=== PATIENT | female | born 1990 | race Caucasian/White ===

== ENCOUNTER 2019-05-12 14:44 | Emergency (ER) | payer OTHER ==
[2019-05-12 14:54] VITALS: TEMP 98.2
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
[2019-05-12 15:20] VITALS: BP 130/70; PULSE 80; RESP 16
== END 2019-05-12 15:17 | disposition home or self-care (01) ==
LOC: EC 14:44
DX: F41.9 Anxiety disorder, unspecified (principal); F17.200 Nicotine dependence, unspecified, uncomplicated
CPT/HCPCS: 99284

== ENCOUNTER 2019-05-21 22:08 | Observation (INO) | payer OTHER ==
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
[2019-05-21] MEDS ORDERED: ZIPRASIDONE 20 MG VIAL IM STA (22:50)
[2019-05-21] MEDS ORDERED: LORazepam 2 MG/ML INJ IM STA (22:50)
[2019-05-21 23:27] LABS: Amphetamine Screen,Urine Not Detected (NotDetected); Barbiturate Screen,Urine Not Detected (NotDetected); Benzodiazepines Screen,Urine Not Detected (NotDetected); Cocaine Screen,Urine Not Detected (NotDetected); Methadone Screen, Urine Not Detected (NotDetected); Opiate Screen,Urine Not Detected (NotDetected); Oxycodone Screen, Urine Not Detected (NotDetected); Phencyclidine Screen,Urine Not Detected (NotDetected); Tricyclic Antidepressant,Urine Not Detected (NotDetected); Urn Cannabinoid Scrn Not Detected (NotDetected)
[2019-05-21] MEDS ORDERED: ONDANSETRON 4 MG/2 ML VIAL IVP PRN (23:57)
[2019-05-21] MEDS ORDERED: LORazepam 2 MG/ML INJ IV PRN (23:57)
[2019-05-21] MEDS ORDERED: THIAMINE 100 MG/ML 2 ML VIAL IM STA (23:57)
[2019-05-21] MEDS ORDERED: SODIUM CHLORIDE 0.9% 1,000 ML with MVI, ADULT NO.4 WITH VIT K 10 ML, THIAMINE 100 MG, F... IV ONE ×4 (23:57)
[2019-05-21] MEDS ORDERED: NALOXONE 0.4 MG/ML 1 ML VIAL IV PRN (23:57)
[2019-05-22] MEDS: LORazepam 2 MG/ML INJ IV PRN ×6 (06:42→21:35)
[2019-05-22] MEDS: NICOTINE 14MG/24HR PATCH TRANSDERM SCH (08:05)
[2019-05-22] MEDS: SODIUM CHLORIDE 0.9% 1,000 ML IV SCH (14:12)
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
--- NOTE | 2019-05-22 16:22 | P.HPIM ---
History of Present Illness H&P Date: 05/22/19 Chief Complaint: Acute alcohol intoxication Patient is a 29-year-old female with a known history of asthma came to ER with complaints of anxiety and panic attack and also having suicidal ideation. Patient has been very depressed and panic that her father a day before . Patient was very panicky and felt like her asthma attack. Patient was also suicidal at the time. Denied any having plan. Otherwise patient denied any complaints of fever or chills. No recent illnesses. No sick contacts. Denied any complaints of shortness of breath now. No nausea vomiting or abdominal pain. No dysuria or hematuria. No headache or dizziness or lightheadedness. No recent travel. UDS is negative. Serum alcohol is 399 Patient is currently awake alert and oriented 3. Currently patient is more comfortable and denied any complaints of social ideation. Review of Systems Constitutional: Patient denies any fever or chills . No generalized weakness or weight loss. Abdomen: Patient denied nausea vomiting and diarrhea and abdominal pain. Cardiovascular: Patient denies any chest pain or short of breath no palpitations. Respiratory: patient denied any cough is from production. No shortness of breath Neurologic: Patient denied any numbness or tingling headache. Musculoskeletal: Patient denies any complaints of joint swelling or deformity. Skin: Negative Psychiatric: Negative Endocrine: No heat or cold intolerance. No recent weight gain. Genitourinary: No dysuria or hematuria. All other 14 point ROS negative except the above Past Medical History Past Medical History: Asthma History of Any Multi-Drug Resistant Organisms: None Reported Past Surgical History: Section Past Psychological History: No Psychological Hx Reported Smoking Status: Current some day smoker Past Alcohol Use History: Abuse, Heavy Past Drug Use History: None Reported - Past Family History Father Family Medical History: Cancer Additional Family Medical History / Comment(s): Father recently from cancer-[t does not know type. Mother Family Medical History: Cancer Additional Family Medical History / Comment(s): Mother has some form of cancer- pt does not know type and does not speak to mother much. Medications and Allergies Home Medications Medication Instructions Recorded Confirmed Type No Known Home Medications 05/22/19 05/22/19 History Allergies Allergy/AdvReac Type Severity Reaction Status Date / Time No Known Allergies Allergy Verified 05/22/19 08:18 Physical Exam Vitals: Vital Signs Temp Pulse Pulse Resp BP BP Pulse Ox 11/15/19 08:13 18 05/22/19 06:59 97.5 F L 74 16 112/59 99 05/22/19 06:06 97 05/22/19 05:00 97.4 F L 80 12 90/61 94 L 05/22/19 01:40 110/74 98 05/22/19 01:25 97.7 F 61 12 87/52 92 L 05/22/19 00:57 70 16 136/71 96 05/21/19 22:30 98.8 F 87 18 125/91 98 Intake and Output 05/21/19 05/22/19 05/22/19 22:59 06:59 14:59 Intake Total 500 Balance 500 Intake: Intake, IV Titration 500 Amount Sodium Chloride 0.9% 1, 500 000 ml @ 100 mls/hr IV . Q10H7M ONE with Mvi, Adult No.4 with Vit K 10 ml with Thiamine 100 mg with Folic Acid 1 mg Rx#: [id number] Other: Voiding Method Diaper Incontinent Weight 59.874 kg PHYSICAL EXAMINATION: Patient is lying in the bed comfortably, no acute distress, awake alert and oriented.. HEENT: Normocephalic. Neck is supple. Pupils reactive. Nostrils clear. Oral c avity is moist. Ears reveal no drainage. Neck reveals no JVD, carotid bruits, or thyromegaly. CHEST EXAMINATION: Trachea is central. Symmetrical expansion. Lung thurston clear to auscultation and percussion. CARDIAC: Normal S1, S2 with no gallops. No murmurs ABDOMEN: Soft. Bowel sounds normal. No organomegaly. No abdominal bruits. Extremities: reveal no edema. No clubbing or cyanosis Neurologically awake, alert, oriented x3 with well-coordinated movements. No focal deficits noted Skin: No rash or skin lesions. Psychiatric: Coperative. Nonsuicidal Musculoskeletal: No joint swelling or deformity. Normal range of motion. Results Labs: Abnormal Lab Results - Last 24 Hours (Table) 05/21/19 Range/Units 23:26 Serum Alcohol 399 H* mg/dL Thrombosis Risk Factor Assmnt - DVT/VTE Prophylaxis DVT/VTE Prophylaxis: Mechanical Prophylaxis ordered Assessment and Plan Assessment: Acute alcohol intoxication Acute suicidal ideation and panic episode. Currently nonsuicidal. Comfortable at this time. History of asthma. Not in exacerbation DVT prophylaxis with early ambulation. Plan: Patient will be continued on IV hydration. Thiamine and multivitamins. Breathing treatments as needed. Currently patient is awake alert and oriented 3. Denied any suicidal ideation. We will check CBC and CMP. If the lab workup was negative patient is medically cleared if inpatient psychiatric admission is needed. Continue to follow closely. Sitter at bedside currently. Time with Patient: Greater than 30
[2019-05-22 17:27] LABS: Basophils % (A) 1 %; Eosinophils # (A) 0.2 k/uL (0-0.7); Eosinophils % (A) 3 %; HCT 41.3 % (34.0-46.0); HGB 13.8 gm/dL (11.4-16.0); Lymphocytes # (A) 1.9 k/uL (1.0-4.8); Lymphocytes % (A) 29 %; MCH 30.1 pg (25.0-35.0); MCHC 33.5 g/dL (31.0-37.0); MCV 89.9 fL (80.0-100.0); Mean Platelet Volume 6.1; Monocytes # (A) 0.2 k/uL (0-1.0); Monocytes % (A) 3 %; Neutrophils # (A) 4.1 k/uL (1.3-7.7); Neutrophils % (A) 63 %; Platelet Count 219 k/uL (150-450); RDW 14.1 % (11.5-15.5); WBC 6.5 k/uL (3.8-10.6)
[2019-05-22 17:38] LABS: ALT 27 U/L (9-52); AST 57 U/L (14-36); African American GFR (CKD) >90 (>60 ml/min/1.73 sqM); Alkaline Phosphatase 138 U/L (38-126); Anion Gap 9 mmol/L; Blood Urea Nitrogen 13 mg/dL (7-17); Calcium 8.9 mg/dL (8.4-10.2); Carbon Dioxide 23 mmol/L (22-30); Chloride 106 mmol/L (98-107); Glucose 90 mg/dL (74-99); Non-African American GFR(CKD) >90 (>60 ml/min/1.73 sqM); Potassium 4.2 mmol/L (3.5-5.1); Sodium 138 mmol/L (137-145); Total Bilirubin 0.5 mg/dL (0.2-1.3); Total Protein 7.6 g/dL (6.3-8.2)
[2019-05-22] MEDS: THIAMINE 100 MG TAB PO SCH (17:56)
[2019-05-23] MEDS: LORazepam 2 MG/ML INJ IV PRN (00:19)
[2019-05-23] MEDS: SODIUM CHLORIDE 0.9% 1,000 ML IV SCH ×3 (05:34→20:27)
[2019-05-23] MEDS: THIAMINE 100 MG TAB PO SCH ×2 (07:53→17:41)
[2019-05-23] MEDS: NICOTINE 14MG/24HR PATCH TRANSDERM SCH (07:53)
[2019-05-23] MEDS: LORazepam 0.5 MG TAB PO PRN ×2 (07:53→16:08)
[2019-05-23] MEDS ORDERED: ACETAMINOPHEN TAB 325 MG TAB PO PRN (21:13)
[2019-05-23 21:54] VITALS: RESP 16
--- NOTE | 2019-05-23 23:46 | P.PN ---
Subjective Progress Note Date: 05/23/19 Principal diagnosis: Acute alcohol intoxication and withdrawal symptoms Suicidal ideation Patient is a 29-year-old female with a known history of asthma came to ER with complaints of anxiety and panic attack and also having suicidal ideation. Patient has been very depressed and panic that her father a day before birthday. Patient was very panicky and felt like her asthma attack. Patient was also suicidal at the time. Denied any having plan. Otherwise patient denied any complaints of fever or chills. No recent illnesses. No sick contacts. Denied any complaints of shortness of breath now. No nausea vomiting or abdominal pain. No dysuria or hematuria. No headache or dizziness or lightheadedness. No recent travel. UDS is negative. Serum alcohol is 399 Patient is currently awake alert and oriented 3. Currently patient is more comfortable and denied any complaints of social ideation. 05/23/2019 Patient is currently sitting in the bed comfortably. Patient had another panic episode today afternoon. Still anxious and is requiring Ativan. Patient will be started on Librium and continue to monitor for alcohol withdrawal symptoms. Psychiatric evaluation possible transfer to inpatient psychiatric unit. Patient denied any complaints of chest pain or shortness of breath. No nausea vomiting. Tolerating oral diet. No fever no chills. No headache or dizziness. Current medications reviewed. Objective - Vital Signs Vital signs: Vital Signs Temp 98.1 F 05/23/19 11:36 Pulse 57 L 05/23/19 11:36 Resp 17 05/23/19 11:36 BP 115/81 05/23/19 11:36 Pulse Ox 99 05/23/19 11:36 Intake & Output 05/22/19 05/23/19 05/23/19 18:59 06:59 18:59 Intake Total 453 966 5429 Balance 707 806 2580 Intake: Intake, IV Titration 800 900 800 Amount Sodium Chloride 0.9% 1, 800 900 800 000 ml @ 100 mls/hr IV . Q10H CHRISTI Rx#:[id number] Oral 1000 Other: Voiding Method Toilet Toilet Toilet # Voids 3 - Exam PHYSICAL EXAMINATION: Patient is lying in the bed comfortably, no acute distress, awake alert and oriented.. HEENT: Normocephalic. Neck is supple. Pupils reactive. Nostrils clear. Oral cavity is moist. Ears reveal no drainage. Neck reveals no JVD, carotid bruits, or thyromegaly. CHEST EXAMINATION: Trachea is central. Symmetrical expansion. Lung thurston clear to auscultation and percussion. CARDIAC: Normal S1, S2 with no gallops. No murmurs ABDOMEN: Soft. Bowel sounds normal. No organomegaly. No abdominal bruits. Extremities: reveal no edema. No clubbing or cyanosis Neurologically awake, alert, oriented x3 with well-coordinated movements. No focal deficits noted Skin: No rash or skin lesions. Psychiatric: Coperative. Nonsuicidal. Anxious Musculoskeletal: No joint swelling or deformity. Normal range of motion. - Labs CBC & Chem 7: 05/22/19 17:14 05/22/19 17:14 Assessment and Plan Assessment: Acute alcohol intoxication Acute alcohol withdrawal symptoms Acute suicidal ideation and panic episode. Currently nonsuicidal. History of asthma. Not in exacerbation DVT prophylaxis with early ambulation. Plan: Patient will be continued on IV hydration. Thiamine and multivitamins. Breathing treatments as needed. Currently patient is awake alert and oriented 3. Denied any suicidal ideation. She is medically stable.. Continue to follow closely. Time with Patient: Greater than 30
[2019-05-24] MEDS: LORazepam 0.5 MG TAB PO PRN ×3 (00:11→18:42)
[2019-05-24] MEDS: SODIUM CHLORIDE 0.9% 1,000 ML IV SCH ×3 (04:29→23:00)
[2019-05-24] MEDS: THIAMINE 100 MG TAB PO SCH ×2 (10:27→16:58)
[2019-05-24] MEDS: NICOTINE 14MG/24HR PATCH TRANSDERM SCH (10:27)
[2019-05-25] MEDS: LORazepam 0.5 MG TAB PO PRN ×2 (02:32→10:32)
[2019-05-25 04:49] VITALS: BP 95/63; PULSE 53; TEMP 98.1
[2019-05-25] MEDS: THIAMINE 100 MG TAB PO SCH (07:57)
[2019-05-25] MEDS: NICOTINE 14MG/24HR PATCH TRANSDERM SCH (07:57)
[2019-05-25] MEDS: SODIUM CHLORIDE 0.9% 1,000 ML IV SCH (10:29)
[2019-05-25 11:09] LABS: Basophils # (A) 0.1 k/uL (0-0.2); Basophils % (A) 1 %; Eosinophils # (A) 0.3 k/uL (0-0.7); Eosinophils % (A) 3 %; HCT 43.9 % (34.0-46.0); HGB 13.9 gm/dL (11.4-16.0); Lymphocytes # (A) 1.6 k/uL (1.0-4.8); Lymphocytes % (A) 18 %; MCH 28.6 pg (25.0-35.0); MCHC 31.7 g/dL (31.0-37.0); MCV 90.3 fL (80.0-100.0); Mean Platelet Volume 7.2; Monocytes # (A) 0.5 k/uL (0-1.0); Monocytes % (A) 5 %; Neutrophils # (A) 6.4 k/uL (1.3-7.7); Neutrophils % (A) 72 %; Platelet Count 172 k/uL (150-450); RBC 4.86 m/uL (3.80-5.40); RDW 14.6 % (11.5-15.5); WBC 8.9 k/uL (3.8-10.6)
[2019-05-25 11:20] LABS: African American GFR (CKD) >90 (>60 ml/min/1.73 sqM); Anion Gap 6 mmol/L; Blood Urea Nitrogen 13 mg/dL (7-17); Calcium 9.5 mg/dL (8.4-10.2); Carbon Dioxide 27 mmol/L (22-30); Chloride 106 mmol/L (98-107); Glucose 103 mg/dL (74-99); Non-African American GFR(CKD) >90 (>60 ml/min/1.73 sqM); Sodium 139 mmol/L (137-145)
--- NOTE | 2019-05-28 09:33 | P.PN ---
Subjective Progress Note Date: 05/24/19 Principal diagnosis: Acute alcohol intoxication and withdrawal symptoms Suicidal ideation Patient is a 29-year-old female with a known history of asthma came to ER with complaints of anxiety and panic attack and also having suicidal ideation. Patient has been very depressed and panic that her father a day before birthday. Patient was very panicky and felt like her asthma attack. Patient was also suicidal at the time. Denied any having plan. Otherwise patient denied any complaints of fever or chills. No recent illnesses. No sick contacts. Denied any complaints of shortness of breath now. No nausea vomiting or abdominal pain. No dysuria or hematuria. No headache or dizziness or lightheadedness. No recent travel. UDS is negative. Serum alcohol is 399 Patient is currently awake alert and oriented 3. Currently patient is more comfortable and denied any complaints of social ideation. 05/23/2019 Patient is currently sitting in the bed comfortably. Patient had another panic episode today afternoon. Still anxious and is requiring Ativan. Patient will be started on Librium and continue to monitor for alcohol withdrawal symptoms. Psychiatric evaluation possible transfer to inpatient psychiatric unit. Patient denied any complaints of chest pain or shortness of breath. No nausea vomiting. Tolerating oral diet. No fever no chills. No headache or dizziness. 01/21/2019 Patient is still shaky and feels very weak. Anxious. Currently being continued on alcohol withdrawal protocol. No complaints of chest pain or shortness of breath. No headache or dizziness or lightheadedness. Anticipate discharge once cleared by psychiatry in the next 24-48 hours. Current medications reviewed. Objective - Vital Signs Vital signs: Vital Signs Temp 98 F 05/24/19 11:28 Pulse 58 L 05/24/19 11:28 Resp 16 05/24/19 11:28 BP 104/69 05/24/19 11:28 Pulse Ox 99 05/24/19 11:28 Intake & Output 05/23/19 05/24/19 05/24/19 18:59 06:59 18:59 Intake Total 1800 600 Balance 1800 600 Intake: Intake, IV Titration 800 600 Amount Sodium Chloride 0.9% 1, 800 600 000 ml @ 100 mls/hr IV . Q10H [facility]STI Rx#:[id number] Oral 1000 Other: Voiding Method Toilet Toilet # Voids 3 2 - Exam PHYSICAL EXAMINATION: Patient is lying in the bed comfortably, no acute distress, awake alert and oriented.. HEENT: Normocephalic. Neck is supple. Pupils reactive. Nostrils clear. Oral cavity is moist. Ears reveal no drainage. Neck reveals no JVD, carotid bruits, or thyromegaly. CHEST EXAMINATION: Trachea is central. Symmetrical expansion. Lung thurston clear to auscultation and percussion. CARDIAC: Normal S1, S2 with no gallops. No murmurs ABDOMEN: Soft. Bowel sounds normal. No organomegaly. No abdominal bruits. Extremities: reveal no edema. No clubbing or cyanosis Neurologically awake, alert, oriented x3 with well-coordinated movements. No focal deficits noted Skin: No rash or skin lesions. Psychiatric: Coperative. Nonsuicidal. Anxious Musculoskeletal: No joint swelling or deformity. Normal range of motion. - Labs CBC & Chem 7: 05/25/19 10:30 05/25/19 10:30 Assessment and Plan Assessment: Acute alcohol intoxication Acute alcohol withdrawal symptoms Acute suicidal ideation and panic episode. Currently nonsuicidal. History of asthma. Not in exacerbation DVT prophylaxis with early ambulation. Plan: Patient will be continued on IV hydration. Thiamine and multivitamins. Breath ing treatments as needed. Currently patient is awake alert and oriented 3. Denied any suicidal ideation. She is medically stable.. Continue to follow closely. Time with Patient: Greater than 30
--- NOTE | 2019-05-28 09:35 | P.DS ---
Providers Date of admission: 05/22/19 00:05 Expected date of discharge: 05/25/19 Attending physician: Yordan Rapp Primary care physician: Stated None Hospital Course: Discharge diagnosis Acute alcohol intoxication Acute alcohol withdrawal symptoms Acute suicidal ideation and panic episode. Currently nonsuicidal. History of asthma. Not in exacerbation DVT prophylaxis with early ambulation. Hospital course Patient is a 29-year-old female with a known history of asthma came to ER with complaints of anxiety and panic attack and also having suicidal ideation. Patient has been very depressed and panic that her father a day before birthday. Patient was very panicky and felt like her asthma attack. Patient was also suicidal at the time. Denied any having plan. Otherwise patient denied any complaints of fever or chills. No recent illnesses. No sick contacts. Denied any complaints of shortness of breath now. No nausea vomiting or abdominal pain. No dysuria or hematuria. No headache or dizziness or lightheadedness. No recent travel. UDS is negative. Serum alcohol is 399 Patient is currently awake alert and oriented 3. Currently patient is more comfortable and denied any complaints of social ideation. 05/23/2019 Patient is currently sitting in the bed comfortably. Patient had another panic episode today afternoon. Still anxious and is requiring Ativan. Patient will be started on Librium and continue to monitor for alcohol withdrawal symptoms. Psychiatric evaluation possible transfer to inpatient psychiatric unit. Patient denied any complaints of chest pain or shortness of breath. No nausea vomiting. Tolerating oral diet. No fever no chills. No headache or dizziness. 05/24/2019 Patient is still shaky and feels very weak. Anxious. Currently being continued on alcohol withdrawal protocol. No complaints of chest pain or shortness of breath. No headache or dizziness or lightheadedness. Anticipate discharge once cleared by psychiatry in the next 24-48 hours. 05/25/2019 Patient is more awake and oriented today. Requiring less doses of Ativan. Denied any suicidal ideation. Patient was seen by EPSand does not think she requires inpatient psychiatric transfer. Patient says that her aunt can pick him up from the hospital. Clinically much improved and is being discharged home today PHYSICAL EXAMINATION: Patient is lying in the bed comfortably, no acute distress, awake alert and oriented.. HEENT: Normocephalic. Neck is supple. Pupils reactive. Nostrils clear. Oral cavity is moist. Ears reveal no drainage. Neck reveals no JVD, carotid bruits, or thyromegaly. CHEST EXAMINATION: Trachea is central. Symmetrical expansion. Lung thurston clear to auscultation and percussion. CARDIAC: Normal S1, S2 with no gallops. No murmurs ABDOMEN: Soft. Bowel sounds normal. No organomegaly. No abdominal bruits. Extremities: reveal no edema. No clubbing or cyanosis Neurologically awake, alert, oriented x3 with well-coordinated movements. No focal deficits noted Skin: No rash or skin lesions. Psychiatric: Coperative. Nonsuicidal Musculoskeletal: No joint swelling or deformity. Normal range of motion. Discharge vitals reviewed Patient Condition at Discharge: Good Plan - Discharge Summary Discharge Rx Participant: No New Discharge Prescriptions: New Multivitamin [Multivitamins Adult Gummies] 1 each PO DAILY #30 tablet Thiamine [Vitamin B-1] 100 mg PO DAILY #30 tab Discharge Medication List Multivitamin [Multivitamins Adult Gummies] 1 each PO DAILY #30 tablet 05/24/19 [Rx] Thiamine [Vitamin B-1] 100 mg PO DAILY #30 tab 05/24/19 [Rx] Follow up Appointment(s)/Referral(s): None,Stated [Primary Care Provider] - 1-2 days (patient instructed to find primary physician and make follow-up appointment) Patient Instructions/Handouts: Thiamine (By mouth), Multivitamins, Adult Formula (By mouth), Generalized Anxiety Disorder (ED), Alcohol Intoxication (DC) Activity/Diet/Wound Care/Special Instructions: [facility] [phone] Discharge Disposition: HOME SELF-CARE
== END 2019-05-25 12:15 | disposition home or self-care (01) ==
LOC: EC 22:08 → 3NMEDONC 05-22 00:05
PROVIDERS: ADMIT Hospitalist; ATTEND Hospitalist
DX: F10.229 Alcohol dependence with intoxication, unspecified (principal); F10.239 Alcohol dependence with withdrawal, unspecified; R45.851 Suicidal ideations; F32.9 Major depressive disorder, single episode, unspecified; F41.0 Panic disorder [episodic paroxysmal anxiety]; J45.909 Unspecified asthma, uncomplicated; F17.200 Nicotine dependence, unspecified, uncomplicated; Y90.8 Blood alcohol level of 240 mg/100 ml or more
CPT/HCPCS: 96376 ×2; 96374; 82075; 96372 ×2; 99284; 36415; 80053; 80048; 85025 ×2; 81025; 80306; G0378 ×4; G0480; S4990 ×4; J2060 ×3; J3411; J3486; 80320